=== PATIENT | male | born 1980 | race Caucasian/White ===

== ENCOUNTER 2019-03-13 08:14 | Outpatient (CLI) | payer OTHER ==
[2019-03-13 08:38] LABS: BASOPHILS % (AUTO) 0.6 % (0-1); EOSINOPHILS # (AUTO) 0.1 X10'3 (0-0.9); EOSINOPHILS % (AUTO) 1.3 % (0-6); HEMATOCRIT 43.2 % (42.0-52.0); HEMOGLOBIN 15.2 g/dl (14.0-17.9); LYMPHOCYTES # (AUTO) 1.9 X10'3 (1.1-4.8); LYMPHOCYTES % (AUTO) 31.3 % (21-51); MEAN CORPUSCULAR HEMOGLOBIN 32.1 PG (27.0-31.0); MEAN CORPUSCULAR HGB CONC 35.2 g/dL (33.0-36.5); MEAN CORPUSCULAR VOLUME 91.2 FL (78-98); MEAN PLATELET VOLUME 7.1 FL (7.4-10.4); MONOCYTES # (AUTO) 0.8 X10'3 (0-0.9); MONOCYTES % (AUTO) 12.8 % (2-12); NEUTROPHILS # (AUTO) 3.3 X10'3 (1.8-7.7); PLATELET COUNT 338 X10'3 (140-440); RED BLOOD COUNT 4.73 X10'6 (4.70-6.10); RED CELL DISTRIBUTION WIDTH 12.6 % (11.5-14.5); WHITE BLOOD COUNT 6.1 X10'3 (4.5-11.0)
[2019-03-13 08:39] LABS: CLARITY,URINE CLEAR (Clear); COLOR,URINE YELLOW (Yellow); GLUCOSE, URINE NEGATIVE (Neg); KETONES,URINE NEGATIVE (Neg); LEUKOCYTE ESTERASE ,URINE NEGATIVE (Neg); NITRITES, URINE NEGATIVE (Neg); OCCULT BLOOD,URINE NEGATIVE (Neg); PROTEIN,URINE NEGATIVE (Neg); UROBILINOGEN,URINE 0.2 E.U/dL (0.2-1.0)
[2019-03-13 08:40] LABS: UA COLLECTION TYPE VOIDED
[2019-03-13 09:01] LABS: ALANINE AMINOTRANSFERASE 20 U/L (12-78); ALBUMIN/GLOBULIN RATIO 1.1 (1.1-1.5); ALKALINE PHOSPHATASE 77 IU/L (46-116); ANION GAP 10 (8-16); ASPARTATE AMINO TRANSFERASE 14 U/L (10-37); BILIRUBIN,TOTAL 0.7 MG/DL (0.1-1.0); BLOOD UREA NITROGEN 18 MG/DL (7-18); BUN/CREATININE RATIO 18.6 (5.4-32.0); CALCIUM 9.3 MG/DL (8.5-10.1); CHLORIDE 103 MMOL/L (99-107); CHOL/HDL RATIO 3.4 (0.00-4.99); CHOLESTEROL 162 MG/DL (0-200); CREATININE 0.97 MG/DL (0.60-1.10); GLUCOSE 103 MG/DL (70-104); HDL CHOLESTEROL 48 MG/DL (35-60); LDL CHOLESTEROL 93 MG/DL (50-100); POTASSIUM 3.9 MMOL/L (3.5-5.1); SODIUM 140 MMOL/L (135-145); TOTAL CARBON DIOXIDE 27.3 MMOL/L (24-32); TOTAL PROTEIN 7.7 G/DL (6.4-8.2); TRIGLYCERIDES 123 MG/DL (20-135); eGFR 87 ML/MIN
== END 2019-03-13 23:59 | disposition home or self-care (01) ==
LOC: LAB 08:14
PROVIDERS: ATTEND Family Medicine
DX: Z76.89 Persons encountering health services in other specified circumstances (principal); R19.8 Other specified symptoms and signs involving the digestive system and abdomen; R13.10 Dysphagia, unspecified; Q87.19 Other congenital malformation syndromes predominantly associated with short stature; I49.9 Cardiac arrhythmia, unspecified
CPT/HCPCS: 36415; 80053; 80061; 81003; 84439; 84443; 85025

== ENCOUNTER 2019-04-21 10:29 | Day surgery (SDC) | payer OTHER ==
[~2019-04-21] VITALS: Ht 167.6 cm; Wt 72.7 kg
[2019-04-21 10:36] VITALS: BP 148/81
[2019-04-21] MEDS ORDERED: IBUP-2417 PO (10:49)
[2019-04-21] MEDS ORDERED: ACET-75 PO (10:51)
[2019-04-21] MEDS ORDERED: SUMA100T PO (10:51)
[2019-04-21] MEDS ORDERED: fentaNYL/PF 50MCG/1 ML 2ML syringe ONE (11:02)
[2019-04-21] MEDS ORDERED: MIDAZolam 5mg/5ml vial ONE (11:02)
[2019-04-21] MEDS ORDERED: LIDOcaine Viscous 15ml cup ONE (11:03)
[2019-04-21 11:45] VITALS: BP 133/86
[2019-04-21 11:55] VITALS: BP 132/78
[2019-04-21 12:05] VITALS: BP 127/76
[2019-04-21 12:15] VITALS: BP 130/84
== END 2019-04-21 12:25 | disposition home or self-care (01) ==
LOC: GI LAB 10:29
PROVIDERS: ATTEND Internal Medicine Gastroenterology
DX: K59.00 Constipation, unspecified (principal); R19.7 Diarrhea, unspecified; R13.10 Dysphagia, unspecified; R11.2 Nausea with vomiting, unspecified; K20.8 Other esophagitis; K44.9 Diaphragmatic hernia without obstruction or gangrene; K29.70 Gastritis, unspecified, without bleeding; K22.8 Other specified diseases of esophagus; K62.89 Other specified diseases of anus and rectum
CPT/HCPCS: 43239; 45380; 99152; 99153; J2250; J3010; J7040

== ENCOUNTER 2019-04-22 19:04 | Emergency (ER) | payer OTHER ==
[~2019-04-22] VITALS: Ht 167.6 cm; Wt 72.7 kg
[~2019-04-22 19:04] MED LIST: ACET-75 PO; IBUP-2417 PO; SUMA100T PO
[2019-04-22] MEDS: valproate sod inj 1,000 MG in normal saline 100ml IV soln 90 ML IV ONE ×2 (19:45→21:40)
[2019-04-22] MEDS ORDERED: proCHLORperazine 10 MG/2 ml inj IV ONE (19:45)
[2019-04-22] MEDS ORDERED: diphenhydrAMINE 50 mg/ml inj IV ONE (19:45)
[2019-04-22] MEDS ORDERED: NORMAL SALINE IV ONE (20:15)
[2019-04-22] MEDS ORDERED: KETAMINE IV ONE (20:15)
--- NOTE | 2019-04-22 21:27 | NUR ---
pt resting comfortably at this time. at bedside. he reports 3/10 pain which is states is tolerable for him.
[2019-04-22 23:01] VITALS: BP 131/87
== END 2019-04-22 23:02 | disposition home or self-care (01) ==
LOC: ER 19:05
DX: G43.909 Migraine, unspecified, not intractable, without status migrainosus (principal); H53.149 Visual discomfort, unspecified
CPT/HCPCS: 70450; 96365; 96375; 99284; J0780; J1200

== ENCOUNTER 2019-05-27 12:48 | Outpatient (CLI) | payer OTHER | END 2019-05-27 23:59 | disposition home or self-care (01) | LOC: CARD DIAG 12:48 | PROVIDERS: ATTEND Internal Medicine Cardiovascular Disease | DX: I05.1 Rheumatic mitral insufficiency (principal) | CPT/HCPCS: 93306 ==

== ENCOUNTER 2019-07-07 10:13 | Emergency (ER) | payer OTHER ==
[~2019-07-07] VITALS: Ht 167.6 cm; Wt 71.1 kg
[2019-07-07 10:18] VITALS: BP 135/88
== END 2019-07-07 10:44 | disposition home or self-care (01) ==
LOC: ER 10:13
DX: T75.89XA Other specified effects of external causes, initial encounter (principal); G43.909 Migraine, unspecified, not intractable, without status migrainosus; Z79.899 Other long term (current) drug therapy; W50.4XXA Accidental scratch by another person, initial encounter; Y93.89 Activity, other specified; Y92.89 Other specified places as the place of occurrence of the external cause; Y99.8 Other external cause status
CPT/HCPCS: 99281